=== PATIENT | female | born 1985 | race Two or more races ===

== ENCOUNTER 2018-10-17 06:28 | Day surgery (SDC) | payer OTHER | END 2018-10-18 10:00 | disposition home or self-care (01) | LOC: CIR.AMB 06:28 → O/R 17:10 → SURH 17:10 → CIR.AMB 17:10 → O/R 10-18 15:14 → SURH 10-18 15:14 → CIR.AMB 10-19 06:39 | PROVIDERS: Specialist | PROC: 0H0V0JZ Alteration of Bilateral Breast with Synthetic Substitute, Open Approach (ICD-10-PCS; principal; 2018-10-17 07:00) | DX: E66.01 Morbid (severe) obesity due to excess calories (principal); E65 Localized adiposity; N62 Hypertrophy of breast ==